=== PATIENT | male | born 1990 | race Caucasian/White ===

== ENCOUNTER 2020-08-12 12:15 | Emergency (ER) | payer OTHER ==
[~2020-08-12] VITALS: Ht 185.4 cm; Wt 78.6 kg
[2020-08-12 12:16] VITALS: BP 122/37
[2020-08-12] MEDS ORDERED: FLUORESCEIN OPHTHALMIC 1 MG STRIP ONE (12:23)
[2020-08-12] MEDS ORDERED: PROPARACAINE OPHTH 0.5%, 15ML ONE (12:23)
== END 2020-08-12 13:17 | disposition home or self-care (01) ==
LOC: ED 13:03
DX: T15.02XA Foreign body in cornea, left eye, initial encounter (principal); X58.XXXA Exposure to other specified factors, initial encounter; Y93.89 Activity, other specified; Y92.89 Other specified places as the place of occurrence of the external cause; Y99.0 Civilian activity done for income or pay
CPT/HCPCS: 65222; 99283; 99284